=== PATIENT | male | born 1965 | race African-American/Black ===

== ENCOUNTER 2016-08-14 02:59 | Inpatient (IN) | payer MEDICARE ==
[~2016-08-14] VITALS: Ht 182.9 cm; Wt 66.0 kg
--- NOTE | ~2016-08-14 | CT71 ---
[facility] A Service of [facility] RADIOLOGY TEXT RESULTS PATIENT: MARIYA SHAY LOCATION: [facility] : 67 UNIT #: [id number] AGE: [address]: John Posadas MD SEX: M ORDER DR: [id number] [address] [address] [id number] I MR#: [id number] Acc #: [id number] NAME: MARIYA SHAY : 1965 SEX: M STUDY DATE/TIME: 08/17/2016 12:17 [facility]: [facility] STUDY DESCRIPTION: CT Head Wo Contrast Attending Physician: John Posadas M.D. Ordering Physician: John Posadas M.D. Primary Care Physician: No Primary Care Physician MEDICAL IMAGING REPORT This report is preliminary unless electronic signature is present EXAM CT head. INDICATION Seizures. Headache. Prior cerebral infarct. TECHNIQUE CT of the head without contrast. This CT exam was performed with one or more of the following radiation dose reduction techniques: automatic exposure control, adjustment of mA and/or kV according to patient size, and iterative reconstruction. COMPARISON CT head 02/19/2016. FINDINGS There is no acute intracranial hemorrhage, mass lesion, or acute infarct. There are large areas of encephalomalacia in the left frontal lobe, left parietal lobe, left temporal lobe, and the right parietal lobe. These are indicative of prior infarcts. There is ex vacuo dilatation of the left lateral ventricle. Configuration of the ventricles is unchanged. There is no new infarct, hemorrhage, or mass lesion. No new extraaxial collection. No acute osseous abnormalities. IMPRESSION 1. No acute intracranial findings or significant interval change. 2. Large areas of encephalomalacia indicative of prior cerebral infarcts. [facility] A Service of [facility] RADIOLOGY TEXT RESULTS PATIENT: MARIYA SHAY LOCATION: [facility] 324 : 67 UNIT #: [id number] AGE: [address]: John Posadas MD SEX: M ORDER DR: Dictated by... Alex Kyle M.D. THIS IS AN ELECTRONICALLY VERIFIED REPORT Alex Kyle M.D. at 08/17/2016 3:37 PM RPJosie/luan TD: 08/17/2016 12:58 JOB #: [id number] MEDICAL IMAGING REPORT Page 1 of 1 COPY
--- NOTE | ~2016-08-14 | CR63 ---
[facility] A Service of [facility] RADIOLOGY TEXT RESULTS PATIENT: MARIYA SHAY LOCATION: [facility] 324-01 : 67 UNIT #: [id number] AGE: [address]: John Posadas MD SEX: M ORDER DR: [id number] [facility] [address] [place], [place] [address] [id number] I MR#: [id number] Acc #: [id number] NAME: MARIYA SHAY : 1965 SEX: M STUDY DATE/TIME: 08/18/2016 17:16 UNIT: [address] ROOM: [facility] STUDY DESCRIPTION: CR Chest 2 View Attending Physician: John Posadas M.D. Ordering Physician: John Posadas M.D. Primary Care Physician: Primary Care Physician No MEDICAL IMAGING REPORT This report is preliminary unless electronic signature is present EXAM Two views chest, 08/18/2016 HISTORY Short of air. FINDINGS AP and lateral radiographs of the chest are presented. Patient describes chest pain and shortness of air with a 4-day duration. Comparison study is 08/14/2016. Cardiac pacemaker unchanged. Mild to moderate cardiac enlargement unchanged. Pulmonary vasculature remains prominent. Slightly less so than on prior study but suggestive of underlying pulmonary vascular congestion. There is no santi pulmonary edema at this time. No pleural effusion or pneumothorax. No dense airspace disease. A nodule in the right lower lobe is unchanged from prior examination and has been present on studies dating to CT examination dated 03/15/2010. It is felt to be benign in nature given stability over this time frame. The visualized upper abdomen is unremarkable. Cardiac pacemaker unchanged. Dictated by... Femi Villanueva M.D. THIS IS AN ELECTRONICALLY VERIFIED REPORT Femi Villanueva M.D. at 08/19/2016 7:11 PM ALVIN/tanya TD: 08/18/2016 23:33 JOB #: [id number] MEDICAL IMAGING REPORT Page 1 of 1 COPY
--- NOTE | ~2016-08-14 | CR72 ---
[facility] A Service of [facility] RADIOLOGY TEXT RESULTS PATIENT: MARIYA SHAY LOCATION: [facility] 324-01 : [birth year] UNIT #: [id number] AGE: [address]: John Posadas MD SEX: M ORDER DR: [id number] [facility] [address] [place], [place] [address] [id number] I MR#: [id number] Acc #: [id number] NAME: MARIYA SHAY. : 1965 SEX: M STUDY DATE/TIME: 08/14/2016 5:25 UNIT: [address] ROOM: [facility] STUDY DESCRIPTION: CR Chest Single View Portable Attending Physician: Mayte Gonzales M.D. Ordering Physician: Fabio London M.D. Primary Care Physician: Primary Care Physician No MEDICAL IMAGING REPORT This report is preliminary unless electronic signature is present EXAM Portable chest 08/14/2016 INDICATION Chest pain for a few days. COMPARISON 03/23/2016. FINDINGS A portable view of the chest was obtained. The heart is mildly enlarged. The dual-lead pacemaker is in good position. There is a stable nodule in the right mid lung measuring about 15 mm in diameter. That nodule was present on an old CT scan from 2010. IMPRESSION No active disease. Dictated by... Alfonso Marques M.D. THIS IS AN ELECTRONICALLY VERIFIED REPORT Alfonso Marques M.D. at 08/15/2016 1:37 PM RACHEL/rosanne TD: 08/15/2016 06:06 JOB #: [id number] MEDICAL IMAGING REPORT Page 1 of 1 COPY
--- NOTE | ~2016-08-14 | A ---
[facility] Nutrition Therapy DATE: 08/15/16 Patient: MARIYA SHAY Physician: AMANDA Address: [address] [place] [address] Room/Bed: [address] [place] [address], Zip: [place] [address] Admit Date: 08/14/16 Date of : 67 Height: 6 0 Weight: 142 64.6 NUTRITIONAL ASSESSMENT: REASON: LOW BMI NUTRITION ASSESSMENT 51 yo male admitted for abdominal pain, n/v PMH: CHF, CVA (aphasic, garbled speech), DM, DKA, cardiomyopathy, CKD stage 2, seizure disorder, AICD Anthropometrics: Ht: 6'2" Wt: 64.6 kg BMI: 18.3 IBW: 86.3 kg, 75% IBW Labs: Cl- 112 Gluc 62 BUN 25 Ca++ 8.0 Alb 3.2 Accuchecks 49-163 Meds: Lopressor, novolog, KCl, zofran, furosemide, protonix I/O & Bowel function: 2510/376, last BM 08/13, abdomen non-distended per MD note Skin Integrity: no breakdown or edema noted Estimated Nutrition Needs: Increased due to low body weight Diet: Consistent carbohydrate diet Assessment: Chart reviewed, events noted. 51 yo male admitted for abdominal pain, n/v. Per information in [employer], CT of the abdomen and gallbladder ultrasound were both negative. RD spoke with the pt at bedside, who is aphasic with garbled speech from a previous CVA, and nodded his head to every question asked by RD. Pt did shake his head when RD asked if he has lost weight recently, indicating that he has not lost weight. RD spoke with the pt's RN, who reports that the pt is agreeable to just about every question he is asked. RN does not seem to believe the pt has been eating well, but did not provide specific information on PO intake. Pt does not appear too thin per RD observation; however, he is tall with a BMI of 18.3. Pt is agreeable to oral nutrition supplements. Please see recommendations beow. Dx: Predicted suboptimal nutritional intake RT admission DX AEB n/v and abdominal pain upon admission, BMI 18.3, RN suspects poor intake. Intervention: 1. Consistent carbohydrate diet (change to 75 gram) 2. Glucerna BID Monitoring, Evaluation and Goals: 1. Oral intake; tolerate >50-75% of meals and supplements [facility] Nutrition Therapy DATE: 08/15/16 Patient: MARIYA Salgado LAURITA Physician: AMANDA Address: [address] [place] [address] Room/Bed: [address] [place] [address], Zip: [place] [id number] Admit Date: 08/14/16 Date of : [birth year] Height: 6 0 Weight: 142 64.6 2. Improve labs; glucose, BUN, Ca++ 3. Weight; promote gradual weight gain towards healthy BMI range 4. GI; promote regular GI function Recommendations: 1. Continue consistent carbohydrate diet, increasing to 75 grams per meal to promote adequate nutritional intake and weight gain. 2. If the pt's PO intake improves to greater than 50% of meals, consider adding a 2 gram Na+ diet restriction due to the pt's significant cardiovascular history. 3. Appreciate staff and family encouraging adequate intake during meals. 4. Glucerna BID for supplemental nutrition. Pt is at mild-moderate nutritional risk. RD will follow hospital course per protocol. Respectfully, ROBBY ARMAS RD, LD Food and Nutritional Services [facility] cc: client file
--- NOTE | ~2016-08-14 | CT2 ---
[facility] A Service of [facility] RADIOLOGY TEXT RESULTS PATIENT: MARIYA SHAY LOCATION: [facility] 324-01 : 67 UNIT #: [id number] AGE: [address]: John Posadas MD SEX: M ORDER DR: [id number] [place] [id number] [facility]. [place], [place] [address] [id number] I MR#: [id number] Acc #: [id number] NAME: MARIYA SHAY. : 1965 SEX: M STUDY DATE/TIME: 08/14/2016 4:43 [facility]: [facility] STUDY DESCRIPTION: CT Abd and Pelv W Cont Attending Physician: Mayte Gonzales M.D. Ordering Physician: Fabio London M.D. Primary Care Physician: Primary Care Physician No MEDICAL IMAGING REPORT This report is preliminary unless electronic signature is present EXAM CT abdomen and pelvis with contrast INDICATION Generalized abdomen pain for 2 days. COMPARISON 03/23/2016. TECHNIQUE The patient was given 100 mL of Isovue 370 and axial 5 mm images were obtained through the abdomen and pelvis. This CT examination was performed with one or more of the following radiation dose reduction techniques: automatic exposure control, adjustment of mA and/or kV according to patient size, and iterative reconstruction. FINDINGS There is a small right pleural effusion. The liver, spleen, pancreas, adrenal glands and kidneys are normal. The gallbladder is abnormal. There appears to be some slightly increased density fluid within the gallbladder and this is surrounded by about a 6 mm area of decreased density suggesting wall thickening. The aorta is normal in size and there is no adenopathy. The bowel is normal. The bladder is normal. The prostate gland is normal. The bones are unremarkable. IMPRESSION 1. The gallbladder has an abnormal appearance. I believe it is due to diffuse gallbladder wall thickening with some slightly hyperdense fluid within the gallbladder. Given the patient's complaints of abdomen pain, this is likely due to the gallbladder and possible cholecystitis. 2. Small right pleural effusion. 3. Otherwise negative. [facility] A Service of [facility] RADIOLOGY TEXT RESULTS PATIENT: MARIYA SHAY LOCATION: [facility] 324-01 : [birth year] UNIT #: [id number] AGE: [address]: John Posadas MD SEX: M ORDER DR: Dictated by... Alfonso Marques M.D. THIS IS AN ELECTRONICALLY VERIFIED REPORT Alfonso Marques M.D. at 08/15/2016 1:37 PM RACHEL/rosanne TD: 08/15/2016 06:09 JOB #: [id number] MEDICAL IMAGING REPORT Page 1 of 1 COPY
--- NOTE | ~2016-08-14 | EKG ---
PATIENT: MARIYA SHAY UNIT #: [id number] Ventricular Rate: 80 BPM Atrial Rate: 72 BPM QRS Duration: 210 ms Q-T Interval: 532 ms QTC Calculation(Bezet): 613 ms P [place]: 48 degrees Calculated R [place]: -78 degrees Calculated T [place]: 93 degrees Diagnosis Line: Ventricular-paced rhythm Diagnosis Line: Abnormal ECG Diagnosis Line: No previous ECGs available Diagnosis Line: Confirmed by MORENITA MIR MD ([id number]) on Diagnosis Line: 08/15/2016 5:11:32 PM INTERPRETING MD: IAN
--- NOTE | ~2016-08-14 | CO ---
Unit #: [id number] #: [id number] Patient: MARIYA BAUTISTA [id number] [address] [place], [place] [address] [id number] I MR#: [id number] NAME: MARIYA BAUTISTA. ROOM: 65546 Age: 51 Sex: M Admission Date: 08/14/2016 : 1965 Attending Physician: Mayte Gonzales M.D. Consultation Date: 08/14/2016 CONSULTATION REPORT HISTORY OF PRESENT ILLNESS Mr. Bautista is a 51-year-old male who came to the emergency room because of a two-day history of abdominal pain that turned into nausea and vomiting. He is aphasic, so the history was taken from the , who said that he was complaining of some mild discomfort but developed nonbloody emesis, and they came to the emergency room. He has not had fever or chills at home. She has never noted any jaundice. In the emergency room, a CT scan was obtained that showed the possibility of some pericholecystic fluid, but no shadowing stones were seen. PAST MEDICAL HISTORY Patient has a significant past medical history to include diabetes with a history of DKA from noncompliance. He had a stroke with residual expressive aphasia, left facial droop, and right-sided weakness, nonischemic cardiomyopathy with an ejection fraction of 20%, hypertension, status post AICD placement, atrial fibrillation, seizure disorder, sarcoidosis, stage 2 chronic kidney disease, and hypothyroidism. Patient denies any prior surgery other than the pacemaker placement. ALLERGIES No allergies to medications. CURRENT MEDICATIONS 1. Norvasc 10 mg daily. 2. Lisinopril 20 mg daily. 3. Lopressor 50 mg b.i.d. 4. Xarelto 20 mg daily. 5. Lasix 20 mg daily. 6. Glucotrol 5 mg twice daily. 7. Pepcid 20 mg daily. 8. Vimpat 100 mg daily. 9. Amiodarone 200 mg daily. 10. Dilantin 100 mg daily. FAMILY HISTORY Diabetes, hypertension, atherosclerotic coronary artery disease. SOCIAL HISTORY Lives at home with his family. Nonsmoker, nondrinker, and no recreational drug use. REVIEW OF SYSTEMS denies that he has had fever or chills at home. He has no jaundice. He has been having normal bowel movements. No hematemesis, hematochezia, Unit #: [id number] #: [id number] Patient: MARIYA BAUTISTA or melena has been noted. PHYSICAL EXAMINATION VITAL SIGNS: Temperature is 97.8, pulse 89, respirations 24 and unlabored, and blood pressure 170/103. GENERAL: He is awake and alert. NEUROLOGIC: He seems to respond appropriately to questions but with his expressive aphasia, it is hard to determine his complete orientation level. Again, he has an expressive aphasia and a left facial droop. He moves all four extremities pretty well, although it is described that he has longstanding right hemiplegia. NECK: No carotid bruits. CARDIOVASCULAR: Regular rate. No murmurs were heard. ABDOMEN: He guards throughout, but there is no localized pain, rebound, or mass. EXTREMITIES: No clubbing, cyanosis, or edema. DIAGNOSTIC STUDIES LABORATORY: Basic metabolic panel shows a serum CO2 of 19, otherwise within normal limits, BUN and creatinine 33 and 1.5, calcium 8.8, and lipase 15. Liver chemistries otherwise normal. Hemoglobin 12.1, white count 6900 with normal differential, and platelets 221,000. Urinalysis is negative for infection. IMAGING: CT scan verbal report is that of pericholecystic fluid but no stones and no other abnormalities of concern. ASSESSMENT AND PLAN A 51-year-old gentleman as described with possible pericholecystic fluid and early acute cholecystitis given that he has nausea, vomiting, and abdominal pain. He is going to be admitted and started on antibiotics, and an ultrasound will be obtained to further evaluation his gallbladder. Due to his past medical history, we will have Dr. Antonio from Cardiology to see the patient in case he does come to surgery. I have discussed this at length with the patient's , and she understands and agrees to admission. Dictated by... Jordyn Broderick/karina TD: 08/14/2016 14:24 JOB #: [id number] CONSULTATION REPORT Page 1 of 1 X John Posadas MD CONSULTATION REPORT
--- NOTE | ~2016-08-14 | NM22 ---
[facility] A Service of [facility] & [facility] RADIOLOGY TEXT RESULTS PATIENT: MARIYA SHAY LOCATION: [facility] 324-01 : 67 UNIT #: [id number] AGE: [address]: John Posadas MD SEX: M ORDER DR: [id number] [facility] [address] [facility]. [place], [place] [address] [id number] I MR#: [id number] Acc #: [id number] NAME: MARIYA SHAY : 1965 SEX: M STUDY DATE/TIME: 08/15/2016 8:25 UNIT: [address] ROOM: [facility] STUDY DESCRIPTION: NM Hepatobiliary W GB Pharm Attending Physician: John Posadas M.D. Ordering Physician: John Posadas M.D. Primary Care Physician: No Primary Care Physician MEDICAL IMAGING REPORT This report is preliminary unless electronic signature is present EXAM Hepatobiliary scan INDICATION Generalized abdominal pain for the past 3 days. PROCEDURE Patient was administered 6 mCi technetium labeled Choletec. Imaging of the upper abdomen was performed for 60 minutes then patient was administered 1.3 mcg of Kinevac IV per protocol. COMPARISON Right upper quadrant ultrasound 08/15/2016 FINDINGS The liver shows symmetric extraction and excretion of radiotracer. The gallbladder fills by 30 minutes. Ejection fraction is 45% at 30 minutes. IMPRESSION Normal study. Dictated by... Alvarez Hickman M.D. THIS IS AN ELECTRONICALLY VERIFIED REPORT Alvarez Hickman M.D. at 08/16/2016 7:11 AM Martha TD: 08/15/2016 15:51 JOB #: [id number] MEDICAL IMAGING REPORT Page 1 of 1 COPY
--- NOTE | ~2016-08-14 | FU ---
[facility] Nutrition Therapy DATE: 08/18/16 Patient: MARIYA SHAY Physician: AMANDA Address: [address] [facility] Room/Bed: [address] [place] [address], Zip: [place] [address] Admit Date: 08/14/16 Date of : [birth year] Height: 6 0 Weight: 145 65.8 NUTRITION MONITORING/FOLLOW-UP: Reason: Follow up Anthropometrics: Ht: 6'2" Adm wt: 64.6 kg BMI: 18.3 Wt 08/18: 65.8 kg (trending up since admission) Labs: Gluc 286 Accuchecks 124 Meds: Lopressor, novolog, zofran, furosemide, protonix, NaCl I&O's: 1280/8, last BM 08/17 Skin: no breakdown or edema noted Diet: Consistent carbohydrate + Glucerna BID Assessment: Chart reviewed, events noted. Rapid response was called on this patient for seizure activity yesterday. Neurology notes no new seizure activity today. RD spoke with the pt's RN, who reports that the pt's nutritional intake is much improved, and that he has been consuming 90-100% of meals and Glucerna supplements. Please refer to recommendations below. Dx: Predicted suboptimal intake RT admission Dx AEB n/v and abdominal pain upon admission, BMI 18.3, RN suspects poor intake- RESOLVED New Dx: Impaired glycemic control RT PMH, clinical condition AEB glucose 286, Intervention: 1. Continue current diet 2. Glucerna BID Monitoring, Evaluation and Goals: 1. Oral intake; tolerate >50-75% of meals and supplements- MET 2. Improve labs; glucose (NOT MET), BUN (MET), Ca++ (MET) 3. GI; promote regular GI function- IN PROGRESS 4. Weight; promote gradual weight gain- IN PROGRESS Recommendations: 1. Continue consistent carbohydrate diet as tolerated + Glucerna BID for supplemental nutrition. [facility] Nutrition Therapy DATE: 08/18/16 Patient: MARIYA SHAY Physician: AMANDA Address: [address] [facility] Room/Bed: [address] [place] [address], Zip: [place] [address] Admit Date: 08/14/16 Date of : [birth year] Height: 6 0 Weight: 145 65.8 2. Appreciate staff encouraging and assisting with nutritional intake as needed. Status: Pt is at mild nutritional risk. Respectfully, ROBBY ARMAS RD, LD Food and Nutritional Services [facility] cc: client file
--- NOTE | ~2016-08-14 | US67 ---
[facility] A Service of [facility] RADIOLOGY TEXT RESULTS PATIENT: MARIYA SHAY LOCATION: [facility] 324-01 : [birth year] UNIT #: [id number] AGE: [address]: John Posadas MD SEX: M ORDER DR: [id number] [facility] [address] [facility]. [place], [place] [address] [id number] I MR#: [id number] Acc #: [id number] NAME: MARIYA SHAY : 1965 SEX: M STUDY DATE/TIME: 08/15/2016 7:59 UNIT: [address] ROOM: [facility] STUDY DESCRIPTION: US Gallbladder Attending Physician: John Posadas M.D. Ordering Physician: John Posadas M.D. Primary Care Physician: Primary Care Physician No MEDICAL IMAGING REPORT This report is preliminary unless electronic signature is present EXAM Gallbladder ultrasound, 08/15/2016 HISTORY Right upper quadrant abdominal pain for 2 days. Diabetes. FINDINGS Ultrasound examination of the gallbladder is negative. There is no cholelithiasis, gallbladder wall thickening, or bile duct dilatation. The visualized liver is negative. IMPRESSION Negative gallbladder ultrasound examination. Dictated by... Abran Medina M.D. THIS IS AN ELECTRONICALLY VERIFIED REPORT Abran Medina M.D. at 08/16/2016 2:09 PM TO/юлия TD: 08/15/2016 14:26 JOB #: [id number] MEDICAL IMAGING REPORT Page 1 of 1 COPY
--- NOTE | ~2016-08-14 | CO ---
Unit #: [id number] #: [id number] Patient: MARIYA BAUTISTA [id number] [address] [place], [place] [address] [id number] MR#: [id number] NAME: MARIYA BAUTISTA ROOM: 324 Age: 51 Sex: M Admission Date: 08/14/2016 : 1965 Attending Physician: John Posadas M.D. Primary Care Physician: Primary Care Physician No Consultation Date: 08/14/2016 CONSULTATION REPORT REASON FOR CONSULTATION Cardiac management. HISTORY OF PRESENT ILLNESS This is a 51-year-old male, who is well known to our group. He has nonischemic cardiomyopathy with ejection fraction one time 15% to 20% on last echo last year. His EF is increased to 35%. He has chronic atrial fibrillation on Xarelto, diabetic, chronic kidney disease, has a defibrillator, and history of nonsustained ventricular tachycardia. Had a previous stroke and has some expressive aphasia, has sarcoidosis and history of seizures in the past. He did have normal coronaries on cath in 2005. The patient came in today with nausea, vomiting, abdominal pain. He has been admitted by Dr. Posadas with [facility]. He says it has been waxing and waning over the last [address] of his abdomen and pelvis that showed possible pericholecystic fluid. The plans are to do an ultrasound of his gallbladder in the morning to evaluate for gallbladder disease. Dr. Posadas wanted Cardiology on the patient's case in case he needs to do a surgical intervention with significant cardiac history. He has wanted Cardiology to follow. On interview with the patient, he denies any shortness of breath. No chest pain. No palpitations. No dizziness, presyncope, or syncope. He states he has been compliant with his medications and he has been following his fluid restriction regimen. Compliant with his medication. Cardiology will follow the patient during this hospitalization. PAST MEDICAL HISTORY 1. Nonischemic cardiomyopathy, LVEF at one time was 15% to 20%, it was reported on last discharge summary 2D echo in 02/2016, LVEF of 35%. Official report not obtained during this dictation. 2. AICD. 3. Chronic atrial fibrillation. 4. Diabetes mellitus, type 2. 5. Hypothyroidism. 6. Chronic kidney disease. 7. Previous stroke with expressive aphasia. 8. History of nonsustained ventricular tachycardia. 9. Chronic systolic congestive heart failure. 10. Sarcoidosis. 11. History of seizures. 12. In 2005, cardiac cath showed normal coronaries. 13. Reformed smoker. PAST SURGICAL HISTORY Unit #: [id number] #: [id number] Patient: MARIYA BAUTISTA [employer] AICD implantation in 2012. HOME MEDICATIONS 1. Glucotrol XL 5 mg p.o. b.i.d. 2. Famotidine 20 mg p.o. daily. 3. Vimpat 100 mg p.o. daily. 4. Amiodarone 200 mg p.o. daily. 5. Dilantin 100 mg p.o. daily. 6. Norvasc 10 mg p.o. daily. 7. Lisinopril 20 mg p.o. daily. 8. Metoprolol 50 mg p.o. b.i.d. 9. Xarelto 20 mg p.o. daily. 10. Lasix 20 mg p.o. daily. ALLERGIES No known drug allergies. SOCIAL HISTORY The patient lives with his family. He is a reformed smoker. No alcohol, illicit, or drug abuse. FAMILY HISTORY Immediate family members had some type of heart condition, but details unavailable. Also diabetic and hypertension runs in his immediate family. REVIEW OF SYSTEMS See details in HPI. PHYSICAL EXAMINATION GENERAL: Mr. Bautista is a 51-year-old male, in no acute respiratory distress. He is awake, alert, and oriented. He does have some expressive aphasia from previous stroke. VITAL SIGNS: Blood pressure 170/100, heart rate 88, respirations 26, temperature 97.8, O2 saturations 96% on room air. NECK: Trachea midline. No thyromegaly or lymphadenopathy. Normal carotid upstrokes. No jugular venous distention. HEART: S1 and S2. Regular rate and rhythm. No clicks, murmurs, or rubs. LUNGS: Diminished, otherwise clear. ABDOMEN: Soft, tender, and generalized upper quadrant. His abdomen is guarded, but no localized pain. EXTREMITIES: Pedal pulses are palpable, but faint. No trace or pedal edema. DIAGNOSTIC STUDIES LABORATORY RESULTS: Glucose is 167, BUN 33, creatinine 1.5, eGFR 62.1. Sodium 137, potassium 4.6, chloride 108, CO2 of 19, calcium is 8.8, total protein 7.3, albumin 3.6, bilirubin total 0.8, AST 41, ALT 35, and alkaline phosphatase is 114. Digoxin level is less than 0.2. WBC 6.9, hemoglobin 12.1, hematocrit 39.1, and platelets 221. AST 41, ALT 35, alkaline phosphatase is 114. Lipase is 15. Urinalysis; 3+ protein, 1.0 urobilinogen, mucus present, otherwise unremarkable. IMAGING STUDIES: Chest x-ray, some scattered interstitial opacities, but looking back compared to previous chest x-ray nothing significant, looks improved. Unit #: [id number] #: [id number] Patient: MARIYA BAUTISTA CT of abdomen and pelvis, preliminary report shows possible pericholecystic fluid. EKG shows ventricle in place, underlying possibly some type of AV dissociation or atrial flutter, atrial fibrillation, slightly prolonged QT. IMPRESSION 1. Nausea, vomiting, abdominal pain. 2. History of nonischemic cardiomyopathy, LVEF of 35% on last echo in 02/2016, previous had LVEF of 15% to 20%. 3. Automatic implantable cardioverter-defibrillator. 4. Chronic atrial fibrillation/flutter on Xarelto. 5. Diabetes mellitus, type 2. 6. Hypothyroidism. 7. Chronic kidney disease, previous stroke with expressive aphasia. 8. History of nonsustained ventricular tachycardia. 9. History of sarcoidosis. 10. History of seizures. 11. Chronic systolic congestive heart failure. 12. Normal coronaries on cardiac cath in 2005. 13. Reformed smoker. PLAN 1. Cardiology consulted to be available if needed in case Dr. Posadas needs to do a surgical procedure. 2. Workup for gallbladder disease. Plans for ultrasound of his gallbladder in the morning. 3. On exam, there is no signs or symptoms of acute congestive heart failure or unstable angina. 4. Holding Xarelto in case we need to have a surgical intervention, but has ordered one dose of Lovenox 40 mg subcu x1 dose today. The patient's last dose of Xarelto was yesterday. 5. We will monitor the patient closely for any fluid overload. He is going to be n.p.o. after midnight with normal saline started with 20 KCl at 90 mL an hour. 6. On exam, there is no signs or symptoms of unstable angina. 7. Continue the patient on his amiodarone, Norvasc, lisinopril, metoprolol, and Lasix. The patient is on MELANIA inhibitor for nonischemic cardiomyopathy. 8. We will check magnesium level today to make sure that is normal, now we will supplement. 9. Monitor labs especially BUN, creatinine, and electrolytes, and supplement when needed. 10. Further recommendations pending per Dr. Tejeda's. Thank you very much for allowing us to assist in the care. Dictated by... Juli Xie A.P.R.N. for S. Sachin Tejeda M.D. BARBARA/sindi TD: 08/15/2016 05:45 JOB #: [id number] Sopastoraa/invision Please Delete Unit #: [id number] #: [id number] Patient: MARIYA BAUTISTA CONSULTATION REPORT Page 1 of 1 X Juli Xie APRN X CONSULTATION REPORT
--- NOTE | ~2016-08-14 | EKG ---
PATIENT: MARIYA SHAY UNIT #: [id number] Ventricular Rate: 83 BPM Atrial Rate: 83 BPM P-R Interval: 150 ms QRS Duration: 110 ms Q-T Interval: 468 ms QTC Calculation(Bezet): 549 ms P [place]: 93 degrees Calculated R [place]: -77 degrees Calculated T [place]: 98 degrees Diagnosis Line: Electronic ventricular pacemaker Diagnosis Line: When compared with ECG of 14-AUG-2016 12:26, Diagnosis Line: (unconfirmed) Diagnosis Line: Vent. rate has increased BY 3 BPM Diagnosis Line: Confirmed by MORENITA MIR MD ([id number]) on Diagnosis Line: 08/15/2016 5:17:57 PM INTERPRETING MD: IAN
--- NOTE | ~2016-08-14 | CO ---
Unit #: [id number] #: [id number] Patient: MARIYA SHAY [id number] [address] [place], [place] [address] [id number] I MR#: [id number] NAME: MARIYA SHAY. ROOM: 324 Age: 51 Sex: M Admission Date: 08/14/2016 : 1965 Attending Physician: John Posadas M.D. Primary Care Physician: No Primary Care Physician Consultation Date: 08/17/2016 CONSULTATION REPORT REASON FOR CONSULT Seizure. PATIENT IDENTIFICATION This is a 51-year-old, right-handed, male evaluated in room [address] [facility]. SOURCE OF INFORMATION Obtained from the medical record; unable to fully obtain from the patient given his speech barrier and cognitive barrier. HISTORY OF PRESENT ILLNESS This is a 51-year-old, right-handed, male with a past medical history of seizure disorder, also left hemispheric and right hemispheric stroke. He has residual aphasia and right-sided weakness, history of nonischemic cardiomyopathy and chronic atrial fibrillation (on Xarelto) and other multiple medical issues. He presented to [facility] with complaints of nausea, vomiting and abdominal pain on the day of admission. Apparently symptoms had been ongoing for 2 days prior to arrival. He was admitted for workup of possible gallbladder disease and has been seen and evaluated by surgery, as well as for cardiac management from cardiology standpoint. Today, the patient had a generalized tonic-clonic seizure that lasted about 30 seconds and resolved spontaneously. A MET call was placed; however, again, the patient's symptoms resolved spontaneously. He was postictal following that and is now essentially improved and appears to be no longer postictal. He has had no recurrent events, no report of any fever or chills or headache. He went for a STAT head CT, which shows no acute intracranial findings or significant interval change with large areas of chronic encephalomalacia indicative of prior cerebral infarcts. Imaging has been reviewed and compared with the last CT scan that was done at this facility in February of 2016. The patient is unable to contribute significantly to review of systems given his speech barrier and cognitive barrier; however, when I ask him about any pain or headache or fever, he denies. He has difficulty following commands and can only mimic. He does have baseline aphasia. He cannot undergo an MRI, as he has an AICD. PAST MEDICAL HISTORY 1. He was seen by neurology at [facility] in Unit #: [id number] #: [id number] Patient: MARIYA SHAY February of 2016 for status epilepticus. He was documented to be noncompliant with his medications at that time. He was started in the ER on 3 seizure medications, including Dilantin, Vimpat and Keppra because he was in status epilepticus. His seizures were abated, and he remained seizure free throughout the hospital stay and was discharged on Keppra 500 mg b.i.d., Vimpat 100 mg b.i.d. and Dilantin 100 mg t.i.d. He was also treated for uncontrolled diabetes mellitus type 2 on that admission. 2. AICD placement. 3. Seizure disorder. 4. Ventricular tachycardia. 5. Chronic atrial fibrillation; he is maintained on Xarelto. 6. History of left MCA ischemic stroke with residual right-sided weakness and aphasia. His prior imaging also shows a smaller right hemispheric infarct. 7. Possible sarcoidosis. 8. Hypertension. 9. Diabetes mellitus type 2, insulin dependent. 10. Hypothyroidism. 11. Depression. 12. History of noncompliance. 13. Admission to [facility] in 2016 for acute on chronic systolic heart failure. At that time his ejection fraction was documented to be 10% to 15%. 14. Chronic kidney disease. 15. Reformed smoker. ALLERGIES No known drug allergies. HOME MEDICATIONS (as per med/rec) 1. Amlodipine besylate 10 mg p.o. daily. 2. Lisinopril 20 mg p.o. daily. 3. Metoprolol tartrate 50 mg p.o. b.i.d. 4. Xarelto (rivaroxaban) 20 mg p.o. daily. 5. Furosemide 20 mg p.o. daily. 6. Glucotrol XL 5 mg p.o. b.i.d. 7. Famotidine 20 mg p.o. daily. 8. Lacosamide 100 mg p.o. daily. 9. Amiodarone 200 mg p.o. daily. 10. Dilantin 100 mg p.o. daily. NOTE: I am unable to verify his home medication doses. Both the lacosamide and Dilantin appear to be atypical doses; however, I called both telephone numbers in the chart, including for his and his son, and was unsuccessful x2 attempts. There is no family at the bedside at the time of evaluation and consultation. FAMILY HISTORY Unable to obtain from the patient. As per my prior evaluation in February of this year, it is documented as noncontributory. Again, I am unable to obtain from the patient at this time. SOCIAL HISTORY According to past evaluation, he is documented as living with his and children at home, is a reformed smoker, nondrinker. No known illicit drug use. I unable to obtain this information from the patient at this time. Unit #: [id number] #: [id number] Patient: MARIYA SHAY REVIEW OF SYSTEMS Unable to obtain from the patient. Otherwise, pertinent positives are as discussed above. He denies current pain. He has difficulty following commands, and he has significant expressive difficulties. PHYSICAL EXAMINATION VITAL SIGNS: Temperature 99.3. He has been afebrile. Pulse 95, respirations 16, blood pressure 138/89, oxygen saturation 100%. He is currently on 2 liters but was on room air prior to his seizure event. Height 6'2", weight 145 pounds. NEUROLOGIC EXAMINATION MENTAL STATUS: The patient is awake. He is fully alert. I am unable fully assess his orientation. He has significant expressive aphasia, and he has difficulty also with following commands. He can mimic, but verbal commands, he is not able to do consistently. He is dysarthric. CRANIAL NERVE EXAM: He responds to threats in the primary visual ng; very questionable peripherally. Eyes are conjugate, however. No ptosis or nystagmus. Extraocular movements are intact. Strength of muscles of facial expression reveals a right lower facial paralysis. Hearing is intact to voice. Tongue is midline. Uvula and palate are unable to be visualized. Head turning and shoulder shrug were unremarkable. Neck is supple. MOTOR EXAM: He has difficulty following commands. I tried to get him to mimic to assess his upper and lower extremities. Not able to assess his pot fireman strength. He does lift all extremities into the air equally with no drift seen. He moves all extremities spontaneously and equally, as well. GAIT: Deferred. ROMBERG: Deferred. REFLEXES: Unable to elicit. Toes are equivocal. COORDINATION: Unable to fully assess. No tremors or myoclonus seen. DIAGNOSTIC STUDIES IMAGING: CT of the head done today without contrast is negative for any new acute intracranial findings or significant interval change. It does show large areas of encephalomalacia indicative of prior cerebral infarcts. He had a HIDA scan done on August 15, 2016. Impression per radiology report - Normal study. Ultrasound of the gallbladder on 08/15/16. Impression per radiology report - Negative gallbladder ultrasound examination. Chest x-ray on 08/14/16. Impression per radiology report - No active disease. CT of the abdomen and pelvis on 08/14/16. Impression per radiology report - Gallbladder has an abnormal appearance possibly due to diffuse gallbladder wall thickening with some slightly hyperdense fluid within the gallbladder. Given the patient's complaints of abdomen pain, likely due to gallbladder and possible cholecystitis. Small right pleural effusion. Otherwise negative. LABS: Sodium 134, potassium 3.9, chloride 103, CO2 20, glucose 286, BUN 14, creatinine 1.2, estimated GFR 81.3, calcium 8.7, phosphorous 2.7, magnesium 1.9. Today's Dilantin level that was checked STAT following his seizure event is 2.6. White blood cell count 8.9, hemoglobin 13.2, hematocrit 41.8, platelet count 247. Other labs done on this stay are as Unit #: [id number] #: [id number] Patient: MARIYA SHAY per chart and have been reviewed. TSH is 1.47. PT 13.4, INR 1.2, PTT 27.3. Urinalysis is negative for bacteria. Culture not indicated. IMPRESSION 1. Breakthrough seizure x1. No evidence of status epilepticus. No recurrence. Seizure resolved spontaneously within 30 seconds. 2. History of seizure disorder. 3. History of noncompliance. 4. History of ischemic stroke. 5. History of chronic atrial fibrillation. Xarelto is being restarted. 6. Nausea, vomiting and abdominal pain, resolved. 7. Other chronic medical conditions as discussed above. PLAN It is very difficult at this time to determine what the patient takes at home. He has atypical doses on his med/rec, the Vimpat being once daily and also the Dilantin being 100 mg once daily. His Dilantin level is subtherapeutic. We will increase his Vimpat to 100 mg b.i.d., and he was loaded with 100 mg at the time of seizure event. Will increase his Dilantin to 300 mg p.o. q.h.s., and we will try to reach family again to verify his history of antiseizure medication use recently. He was discharged in February on 3 seizure medications; however, we started all 3 of those medications because he was in status epilepticus. I am not certain whether he needs monotherapy or multiple medications; however, we are not sure what he is even taking at this point, so we will discuss with family for further recommendations and continue Vimpat and Dilantin at this time. Further recommendations pending further clinical course and discussion with family. We will follow along with you. We thank you very much for allowing us to assist in the care of this patient. 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 Dr. Hooker saw the patient, as well. He agrees with the above. Dictated by... Maine Brito A.P.R.N. for Jordyn Sunshine/rupert TD: 08/18/2016 07:50 JOB #: [id number] CONSULTATION REPORT Page 1 of 1 X Maine Brito [employer]EN[employer]CH[employer]IC X CONSULTATION REPORT
[~2016-08-14 02:59] MED LIST: ACCUPRIL PO; AMIODARONE PO; AMLODIPINE BESY10 MG PO; APRESOLINE PO; ASPIRIN EC81 M1 PO; ASPIRIN PO; ASPIRIN81 M2 PO; ASPIRIN81 MG PO; ATENOLOL PO; ATORVASTATIN CA80 MG PO; AZITHROMYCIN250 MG PO; BAYER CHEWABLE81 MG PO; BENZONATATE PO; CARVEDILOL25 MG PO; CELEXA20 MG PO; CORDARONE200 M1 PO; COREG PO; COREG12.5 MG PO; COUMADIN5 MG PO; CRESTOR PO; DILANTIN PO; FAMOTIDINE20 M1 PO; FEROSUL325 ( 651 PO; GLIPIZIDE10 MG PO; GLIPIZIDE10 MG/BOTT PO; GLUCOTROL PO; GLUCOTROL XL PO; GLUCOTROL10 MG PO; HUMULIN 70/30 V10 ML INJ; HUMULIN N VIAL SUBQ; HYDRALAZINE HCL25 MG PO; HYDRALAZINE HCL50 MG PO; IMDUR-ER30 M1 PO; K-DUR20 ME2 PO; K-TAB ER20 MEQ PO; KEPPRA500 M1 PO; KEPPRA500 M2 PO; KEPPRA500 MG PO; KLOR-CON PO; LANOXIN125 MCG PO; LASIX PO; LASIX20 MG PO; LEVEMIR100 UNITS/ SUBQ; LEVETIRACETAM500 MG PO; LIPITOR PO; LIPITOR80 MG PO; LISINOPRIL PO; LISINOPRIL10 MG PO; LISINOPRIL20 MG PO; LOPRESSOR PO; MAGNESIUM400 MG PO; MAGOX 400400 MG PO; METFORMIN HCL500 M1 PO; METFORMIN PO; METHIMAZOLE10 MG PO; METOPROLOL SUCC50 MG PO; NORTHYX10 MG PO; NORVASC; NORVASC PO; NORVASC10 MG PO; NOVOLIN 70/30 V10 ML INJ; NOVOLIN 70/30 V10 ML SUBQ; NOVOLIN 70100 UNITS/ SUBQ; NOVOLIN N100 U/ML INJ; NOVOLOG100 U/ML SUBQ; OXYCODONE HCL5 MG PO; PEN-VEE K PO; PHENERGAN25 M1 PO; REGLAN10 MG PO; TAPAZOLE10 MG PO; VIMPAT100 MG PO; XARELTO20 MG PO; ZESTRIL40 MG PO; ZOFRAN ODT4 MG PO
[2016-08-14 04:27] LABS: BASOPHIL# 0.1 X10e3 (0-0.3); EOSINOPHIL# 0.1 X10e3 (0-0.7); EOSINOPHIL% 1.1 % (0.0-7.0); HEMATOCRIT 39.1 % (38.0-50.0); HEMOGLOBIN 12.1 gm/dL (13.0-16.0); LYMPHOCYTE# 1.7 X10e3 (1.0-3.5); LYMPHOCYTE% 24.9 % (17.0-45.0); MEAN CELL VOLUME 73.3 FL (83-96); MEAN CORPUSCULAR HEMOGLOBIN 22.6 PG (28-34); MEAN CORPUSCULAR HGB CONC 30.9 g/dL (30-36); MEAN PLATELET VOLUME 8.2 FL (6.5-11.5); MONOCYTE# 0.7 X10e3 (0-1.0); NEUTROPHIL# 4.4 X10e3 (1.5-7.1); PLATELET COUNT 221 X10e3 (140-420); RED BLOOD COUNT 5.34 X10e (3.90-5.60); RED CELL DISTRIBUTION WIDTH 14.4 % (11.0-15.5); WHITE BLOOD COUNT 6.9 X10e3 (4.0-10.5)
[2016-08-14 04:32] LABS: DIFF IND NO
[2016-08-14 04:52] LABS: ALBUMIN SERUM 3.6 g/dL (3.5-5.0); BILIRUBIN, DIRECT 0.2 mg/dL (0.0-0.2); BILIRUBIN,INDIRECT 0.6 mg/dL (0.0-0.9); BILIRUBIN,TOTAL 0.8 mg/dL (0.2-2.0); CALCIUM SERUM 8.8 mg/dL (8.4-10.2); CREATININE SERUM 1.5 mg/dL (0.6-1.4); GLOM FILT RATE Estimated 62.1 mL/min (>60); POTASSIUM 4.6 mmol/L (3.5-5.1); PROTEIN TOTAL SERUM 7.3 g/dL (6.0-8.3)
[2016-08-14 06:08] LABS: URINE SOURCE CLEAN CATCH
[2016-08-14 06:18] LABS: URINE APPEARANCE CLEAR; URINE BILIRUBIN NEG (NEG); URINE BLOOD NEG (NEG); URINE COLOR YELLOW; URINE GLUCOSE NEG (NEG); URINE KETONE NEG (NEG); URINE LEUKOCYTE ESTERASE NEG (NEG); URINE NITRATE NEG (NEG); URINE PROTEIN 3+ (NEG); URINE SPECIFIC GRAVITY 1.038 (1.003-1.035)
[2016-08-14 06:21] LABS: URBCS1 AUWI 0-2 /[HPF] (0-2); URINE BACTERIA AUWI NEG (NEGATIVE); URINE SQUAMOUS EPITHELIAL CELL NONE SEEN /[HPF]; UWBCS1 AUWI 0-2 (0-5)
[2016-08-14 06:39] LABS: CULTURE INDICATED? NO; U HYALINE CASTS AUWI 50-100 /[LPF]; URINE MUCUS PRESENT
[2016-08-14] MEDS ORDERED: NORVASC10 MG PO (06:48)
[2016-08-14] MEDS ORDERED: LISINOPRIL20 MG PO (06:49)
[2016-08-14] MEDS ORDERED: XARELTO20 MG PO (06:49)
[2016-08-14] MEDS ORDERED: LOPRESSOR PO (06:49)
[2016-08-14] MEDS ORDERED: LASIX20 MG PO (06:50)
[2016-08-14] MEDS ORDERED: GLUCOTROL XL5 M1 PO (06:50)
[2016-08-14] MEDS ORDERED: ACID REDUCER20 MG PO (06:50)
[2016-08-14] MEDS ORDERED: VIMPAT100 MG PO (06:50)
[2016-08-14] MEDS ORDERED: AMIODARONE HCL200 MG PO (06:51)
[2016-08-14] MEDS ORDERED: DILANTIN PO (06:53)
[2016-08-15 05:29] LABS: HEMATOCRIT 34.9 % (38.0-50.0); HEMOGLOBIN 10.9 gm/dL (13.0-16.0); MEAN CELL VOLUME 72.5 FL (83-96); MEAN CORPUSCULAR HEMOGLOBIN 22.6 PG (28-34); MEAN CORPUSCULAR HGB CONC 31.2 g/dL (30-36); MEAN PLATELET VOLUME 8.3 FL (6.5-11.5); RED BLOOD COUNT 4.82 X10e (3.90-5.60); RED CELL DISTRIBUTION WIDTH 14.2 % (11.0-15.5); WHITE BLOOD COUNT 4.4 X10e3 (4.0-10.5)
[2016-08-15 05:58] LABS: INR 1.2; PARTIAL THROMBOPLASTIN TIME 27.3 SECONDS (23.5-31.3); PROTHROMBIN TIME (PATIENT) 13.4 SECONDS (10.0-11.7)
[2016-08-15 06:19] LABS: ALBUMIN SERUM 3.2 g/dL (3.5-5.0); BILIRUBIN,TOTAL 0.7 mg/dL (0.2-2.0); BUN/CREATININE RATIO 19.23; CREATININE SERUM 1.3 mg/dL (0.6-1.4); GLOM FILT RATE Estimated 73.8 mL/min (>60); MAGNESIUM 1.7 mg/dL (1.6-3.0); PHOSPHOROUS 2.7 mg/dL (2.5-4.6); POTASSIUM 3.8 mmol/L (3.5-5.1); PROTEIN TOTAL SERUM 6.3 g/dL (6.0-8.3)
[2016-08-16 06:41] LABS: HEMATOCRIT 37.6 % (38.0-50.0); HEMOGLOBIN 11.8 gm/dL (13.0-16.0); MEAN CELL VOLUME 72.5 FL (83-96); MEAN CORPUSCULAR HEMOGLOBIN 22.8 PG (28-34); MEAN CORPUSCULAR HGB CONC 31.5 g/dL (30-36); MEAN PLATELET VOLUME 8.3 FL (6.5-11.5); RED BLOOD COUNT 5.19 X10e (3.90-5.60); RED CELL DISTRIBUTION WIDTH 14.5 % (11.0-15.5)
[2016-08-16 06:43] LABS: WHITE BLOOD COUNT 7.7 X10e3 (4.0-10.5)
[2016-08-16 07:10] LABS: BUN/CREATININE RATIO 14.16; CALCIUM SERUM 8.4 mg/dL (8.4-10.2); CREATININE SERUM 1.2 mg/dL (0.6-1.4); GLOM FILT RATE Estimated 81.3 mL/min (>60); POTASSIUM 3.9 mmol/L (3.5-5.1)
[2016-08-17 13:18] LABS: HEMATOCRIT 41.8 % (38.0-50.0); HEMOGLOBIN 13.2 gm/dL (13.0-16.0); MEAN CELL VOLUME 72.5 FL (83-96); MEAN CORPUSCULAR HEMOGLOBIN 22.8 PG (28-34); MEAN CORPUSCULAR HGB CONC 31.5 g/dL (30-36); MEAN PLATELET VOLUME 8.1 FL (6.5-11.5); RED BLOOD COUNT 5.77 X10e (3.90-5.60); RED CELL DISTRIBUTION WIDTH 14.5 % (11.0-15.5); WHITE BLOOD COUNT 8.9 X10e3 (4.0-10.5)
[2016-08-17 13:41] LABS: BUN/CREATININE RATIO 11.66; CALCIUM SERUM 8.7 mg/dL (8.4-10.2); CREATININE SERUM 1.2 mg/dL (0.6-1.4); DILANTIN (PHENYTOIN) 2.6 ug/mL (10.0-20.0); GLOM FILT RATE Estimated 81.3 mL/min (>60); MAGNESIUM 1.9 mg/dL (1.6-3.0); PHOSPHOROUS 2.7 mg/dL (2.5-4.6); POTASSIUM 3.9 mmol/L (3.5-5.1)
[2016-08-18 19:15] LABS: HEMATOCRIT 39.7 % (38.0-50.0); HEMOGLOBIN 12.6 gm/dL (13.0-16.0); MEAN CELL VOLUME 71.8 FL (83-96); MEAN CORPUSCULAR HEMOGLOBIN 22.7 PG (28-34); MEAN CORPUSCULAR HGB CONC 31.6 g/dL (30-36); MEAN PLATELET VOLUME 8.3 FL (6.5-11.5); RED BLOOD COUNT 5.54 X10e (3.90-5.60); RED CELL DISTRIBUTION WIDTH 14.3 % (11.0-15.5); WHITE BLOOD COUNT 11.2 X10e3 (4.0-10.5)
[2016-08-18 19:39] LABS: BUN/CREATININE RATIO 13.07; CALCIUM SERUM 8.4 mg/dL (8.4-10.2); CREATININE SERUM 1.3 mg/dL (0.6-1.4); GLOM FILT RATE Estimated 73.8 mL/min (>60); POTASSIUM 3.7 mmol/L (3.5-5.1)
[2016-08-19 06:23] LABS: URINE APPEARANCE CLEAR; URINE BILIRUBIN NEG (NEG); URINE BLOOD NEG (NEG); URINE COLOR YELLOW; URINE GLUCOSE NEG (NEG); URINE KETONE NEG (NEG); URINE LEUKOCYTE ESTERASE NEG (NEG); URINE NITRATE NEG (NEG); URINE PH 6.5 (5-8); URINE PROTEIN 1+ (NEG); URINE SPECIFIC GRAVITY 1.013 (1.003-1.035); URINE UROBILINOGEN 0.2 MG/DL (NEG)
[2016-08-19 06:26] LABS: URBCS1 AUWI 0-2 /[HPF] (0-2); URINE BACTERIA AUWI NEG (NEGATIVE); URINE SQUAMOUS EPITHELIAL CELL NONE SEEN /[HPF]; UWBCS1 AUWI 0-2 (0-5)
[2016-08-20 05:45] LABS: BUN/CREATININE RATIO 13.33; CALCIUM SERUM 8.5 mg/dL (8.4-10.2); CREATININE SERUM 1.2 mg/dL (0.6-1.4); GLOM FILT RATE Estimated 81.3 mL/min (>60); POTASSIUM 4.2 mmol/L (3.5-5.1)
[2016-08-21 06:06] LABS: HEMATOCRIT 37.4 % (38.0-50.0); HEMOGLOBIN 11.6 gm/dL (13.0-16.0); MEAN CELL VOLUME 72.2 FL (83-96); MEAN CORPUSCULAR HEMOGLOBIN 22.3 PG (28-34); MEAN CORPUSCULAR HGB CONC 30.9 g/dL (30-36); MEAN PLATELET VOLUME 8.5 FL (6.5-11.5); RED BLOOD COUNT 5.19 X10e (3.90-5.60); RED CELL DISTRIBUTION WIDTH 14.9 % (11.0-15.5); WHITE BLOOD COUNT 4.8 X10e3 (4.0-10.5)
[2016-08-21 06:32] LABS: BUN/CREATININE RATIO 17.27; CALCIUM SERUM 8.6 mg/dL (8.4-10.2); CREATININE SERUM 1.1 mg/dL (0.6-1.4); GLOM FILT RATE Estimated 90.3 mL/min (>60); POTASSIUM 4.3 mmol/L (3.5-5.1)
[2016-08-22] MEDS ORDERED: LOPRESSOR PO (16:24)
[2016-08-22] MEDS ORDERED: MAG-OX 400400 MG PO (16:32)
[2016-08-22] MEDS ORDERED: VIMPAT100 MG PO (17:16)
[2016-08-22] MEDS ORDERED: DILANTIN PO (17:18)
== END 2016-08-22 22:50 | disposition home or self-care (01) | DRG 392 ==
LOC: CED 02:59 → CEDOF 11:48 → CED 12:21 → C3A PCU 15:42 → CEDOF 15:42 → C3A PCU 15:42
PROVIDERS: Emergency Medicine; Internal Medicine Cardiovascular Disease; Nurse Practitioner Family; Specialist
PROC: 05HA33Z Insertion of Infusion Device into Left Brachial Vein, Percutaneous Approach (ICD-10-PCS; principal; 2016-08-18)
DX: R10.9 Unspecified abdominal pain (principal); I47.2 Ventricular tachycardia; E11.649 Type 2 diabetes mellitus with hypoglycemia without coma; I69.351 Hemiplegia and hemiparesis following cerebral infarction affecting right dominant side; G40.409 Other generalized epilepsy and epileptic syndromes, not intractable, without status epilepticus; I48.2 Chronic atrial fibrillation; I12.9 Hypertensive chronic kidney disease with stage 1 through stage 4 chronic kidney disease, or unspecified chronic kidney disease; Z68.1 Body mass index [BMI] 19.9 or less, adult; I69.320 Aphasia following cerebral infarction; Z79.01 Long term (current) use of anticoagulants; Z79.84 Long term (current) use of oral hypoglycemic drugs; E03.9 Hypothyroidism, unspecified; N18.2 Chronic kidney disease, stage 2 (mild); F32.9 Major depressive disorder, single episode, unspecified; Z87.891 Personal history of nicotine dependence; D86.9 Sarcoidosis, unspecified; Z95.810 Presence of automatic (implantable) cardiac defibrillator; Z83.3 Family history of diabetes mellitus; Z82.49 Family history of ischemic heart disease and other diseases of the circulatory system; R63.6 Underweight
CPT/HCPCS: 36415; 70450; 71010; 71020; 74177; 76705; 78227; 80048; 80053; 80076; 80162; 80185; 81003; 82947; 83690; 83735; 84100; 84443; 85025; 85027; 85610; 85730; 87040; 93005; 96361; 96365; 96375; 99285; A9537; C9113; C9254; J1650; J1815; J2405; J2543; J2805; J3475; Q9967